=== PATIENT | male | born 1965 ===

== ENCOUNTER 2019-07-02 05:43 | Day surgery (SDC) | payer OTHER ==
[~2019-07-02] VITALS: Ht 180.3 cm; Wt 106.0 kg
[~2019-07-02 05:43] MED LIST: ASCO100019 PO; ASPI-496 PO; CALC1CAP8 PO; LORA-702 PO; MV-M1TAB16 PO; OMEG-76 PO; OMEP-110 PO; SERT100T32 PO
[2019-07-02 06:08] VITALS: BP 159/85
[2019-07-02] MEDS ORDERED: LACTATED RINGERS 1,000 ML IV SCH (06:11)
[2019-07-02] MEDS ORDERED: CHLORHEXIDINE 15 ML UDC ONE (06:19)
[2019-07-02] MEDS ORDERED: BUPIVACAINE/PF-EPI 0.25% 1:200K ONE (06:24)
[2019-07-02] MEDS ORDERED: CHLORHEXIDINE 15 ML UDC MM ONE (06:30)
[2019-07-02] MEDS ORDERED: MIDAZOLAM 1 MG/ML, 2ML ONE (06:31)
[2019-07-02] MEDS ORDERED: FENTANYL PF 250 MCG/5ML ONE ×2 (06:31→08:30)
[2019-07-02 06:55] LABS: BASOPHILS # (AUTO) 0.02 x10^3/uL (0-0.1); BASOPHILS % (AUTO) 0 % (0-1); EOSINOPHILS # (AUTO) 0.37 x10^3/uL (0-0.4); EOSINOPHILS % (AUTO) 5 % (1-7); LYMPHOCYTES # (AUTO) 2.05 x10^3/uL (1-3.4); LYMPHOCYTES % (AUTO) 29 % (22-44); MD NO; MEAN CORPUSCULAR HEMOGLOBIN 34.3 pg (27.5-34.5); MEAN CORPUSCULAR HGB CONC 33.9 g/dL (33.2-36.2); MEAN CORPUSCULAR VOLUME 101.1 fL (81-97); MEAN PLATELET VOLUME 8.6 fL (7.4-10.4); MONOCYTES # (AUTO) 0.59 x10^3/uL (0.2-0.8); MONOCYTES % (AUTO) 8 % (2-9); NEUTROPHILS % (AUTO) 57 % (42-75); PLATELET COUNT 167 x10^3/uL (130-400); RED BLOOD COUNT 5.32 x10^6/uL (4.38-5.82); RED CELL DISTRIBUTION WIDTH 13.9 % (9.4-14.8)
[2019-07-02] MEDS ORDERED: OXYcodone 5 MG/5 ML ORAL.SOL UDC PO PRN (07:00)
[2019-07-02] MEDS ORDERED: HALOPERIDOL 5 MG/ML IV PRN (07:00)
[2019-07-02] MEDS ORDERED: LABETALOL 5MG/ML, 20ML IV PRN (07:00)
[2019-07-02] MEDS ORDERED: FENTANYL PF 100 MCG/2ML IV PRN (07:00)
[2019-07-02] MEDS ORDERED: hydrALAzine 20 MG/ML, 1ML IV PRN (07:00)
[2019-07-02] MEDS ORDERED: PROMETHAZINE 25 MG/ML, 1ML IV PRN (07:00)
[2019-07-02] MEDS ORDERED: HYDROmorphone 2 MG/ML, 1ML IVPush PRN (07:00)
[2019-07-02] MEDS ORDERED: MEPERIDINE/PF 25MG/ML,1ML IVPush PRN (07:00)
[2019-07-02 07:05] LABS: INTERNATIONAL NORMALIZED RATIO 0.98 (0.93-1.1); PROTHROMBIN TIME 10.4 Seconds (9.6-11.5)
[2019-07-02] MEDS ORDERED: EPHEDRINE 50 MG/ML, 1ML ONE (08:24)
[2019-07-02] MEDS ORDERED: DEXAMETHASONE 4 MG/ML, 1ML ONE (09:21)
[2019-07-02] MEDS ORDERED: CEFAZOLIN 1,000 MG ONE (09:21)
[2019-07-02] MEDS ORDERED: PROPOFOL 10 MG/ML, 20ML ONE (09:21)
[2019-07-02] MEDS ORDERED: GLYCOPYRROLATE 0.2MG/1ML, 5ML ONE (09:21)
[2019-07-02] MEDS ORDERED: SUCCINYLCHOLINE 20 MG/ML, 10ML ONE (09:21)
[2019-07-02] MEDS ORDERED: ROCURONIUM 10MG/ML,5ML ONE (09:21)
[2019-07-02] MEDS ORDERED: NEOSTIGMINE 1 MG/ML, 10ML ONE (09:21)
[2019-07-02] MEDS ORDERED: ONDANSETRON 2MG/ML, 2ML ONE (09:21)
== END 2019-07-02 13:05 | disposition home or self-care (01) ==
LOC: OUT 05:43
PROVIDERS: ATTEND Orthopaedic Surgery
DX: S46.011A Strain of muscle(s) and tendon(s) of the rotator cuff of right shoulder, initial encounter (principal); S46.111A Strain of muscle, fascia and tendon of long head of biceps, right arm, initial encounter; S43.431A Superior glenoid labrum lesion of right shoulder, initial encounter; M25.811 Other specified joint disorders, right shoulder; M75.21 Bicipital tendinitis, right shoulder; I10 Essential (primary) hypertension; K21.9 Gastro-esophageal reflux disease without esophagitis; G47.33 Obstructive sleep apnea (adult) (pediatric); D45 Polycythemia vera; Z79.82 Long term (current) use of aspirin; Z79.01 Long term (current) use of anticoagulants; Z79.899 Other long term (current) drug therapy; Z86.718 Personal history of other venous thrombosis and embolism; Z87.891 Personal history of nicotine dependence; W18.39XA Other fall on same level, initial encounter; Y93.89 Activity, other specified; Y92.89 Other specified places as the place of occurrence of the external cause; Y99.8 Other external cause status
CPT/HCPCS: 23410; 23430; 29823; 29826; 36415; 64415; 85014; 85018; 85025; 85610; 85730; C1713; J0330; J0690; J1100; J2250; J2405; J2704; J2710; J3010; J7120